=== PATIENT | female | born 1970 | race Caucasian/White ===

== ENCOUNTER 2022-01-29 06:35 | Day surgery (SDC) | payer MEDICAID, SELFPAY ==
[~2022-01-29] VITALS: Ht 160 cm; Wt 144.2 kg
[2022-01-29] MEDS ORDERED: MIDAZOLAM HCL 5 MG/5 ML VIAL ONE (08:04)
[2022-01-29] MEDS ORDERED: fentaNYL CITRATE/PF 100 MCG/2 ML AMP ONE (08:04)
[2022-01-29 12:12] VITALS: BP_SYST 140
== END 2022-01-29 10:30 | disposition home or self-care (01) ==
LOC: SDS 06:35 → SMU 06:36 → SDS 10:30
PROVIDERS: ATTEND Internal Medicine
DX: E66.01 Morbid (severe) obesity due to excess calories (principal); K29.50 Unspecified chronic gastritis without bleeding; Z68.43 Body mass index [BMI] 50.0-59.9, adult; E78.5 Hyperlipidemia, unspecified; Z87.891 Personal history of nicotine dependence; Z79.899 Other long term (current) drug therapy; Z20.822 Contact with and (suspected) exposure to COVID-19
CPT/HCPCS: 36415; 43239; 87081; 87426; 88305; 88312; 88313; G0378; J2250; J3010; U0003